=== PATIENT | male | born 1960 | race Caucasian/White ===

== ENCOUNTER → 2020-01-08 | Outpatient (REF) | payer MEDICARE ==
[2020-01-08 18:07] LABS: BASO # 0.1 10^3/uL (0.0-0.2); BASO % 0.4 % (0.0-1.0); EOS # 0.2 10^3/uL (0.0-0.5); EOS % 1.5 % (0.0-3.0); HEMATOCRIT 46.4 % (42.0-52.0); HEMOGLOBIN 15.8 g/dl (13.5-17.5); INR 1.1; LYMPH # 3.1 10^3/uL (1.5-5.0); LYMPH % 20.3 % (24.0-44.0); MEAN CORPUSCULAR HEMOGLOBIN 31.3 pg (27.0-33.0); MEAN CORPUSCULAR HGB CONC 34.1 g/dl (32.0-36.5); MEAN CORPUSCULAR VOLUME 91.9 fl (80.0-96.0); MONO % 6.6 % (0.0-5.0); NEUTROPHILS # 10.6 10^3/uL (1.5-8.5); NEUTROPHILS % 70.7 % (36.0-66.0); PLATELET COUNT, AUTOMATED 310 10^3/uL (150-450); PROTHROMBIN TIME 13.9 SECONDS (11.8-14.0); RED BLOOD COUNT 5.05 10^6/uL (4.30-6.10); WHITE BLOOD COUNT 15.1 10^3/uL (4.0-10.0)
[2020-01-08 18:08] LABS: PARTIAL THROMBOPLASTIN TIME 29.2 SECONDS (25.0-38.4)
[2020-01-08 18:09] LABS: BLOOD UREA NITROGEN 17 MG/DL (7-18); CALCIUM LEVEL 9.4 MG/DL (8.5-10.1); CARBON DIOXIDE LEVEL 21 MEQ/L (21-32); CHLORIDE LEVEL 107 MEQ/L (98-107); CREATININE FOR GFR 0.74 MG/DL (0.70-1.30); GLOMERULAR FILTRATION RATE > 60.0 (>56); GLUCOSE, FASTING 98 MG/DL (70-100); POTASSIUM SERUM 4.2 MEQ/L (3.5-5.1); SODIUM LEVEL 137 MEQ/L (136-145)
== END ==
LOC: M LAB REF 17:04
PROVIDERS: ATTEND Internal Medicine Pulmonary Disease
DX: Z01.812 Encounter for preprocedural laboratory examination (principal); J44.9 Chronic obstructive pulmonary disease, unspecified

== ENCOUNTER → 2020-01-19 | Outpatient (CLI) | payer MEDICARE ==
[~2020-01-19] MED LIST: ABIL10TA9 PO; IBUP80TA PO; PROAAER10 INH; SYMB16INH INH; TREL1AER INH
== END ==
LOC: M LABSMTC 10:22
PROVIDERS: ATTEND Anesthesiology
DX: Z11.59 Encounter for screening for other viral diseases (principal)

== ENCOUNTER 2020-01-21 07:22 | Day surgery (SDC) | payer MEDICARE ==
[~2020-01-21] VITALS: Ht 193 cm; Wt 112.7 kg
[~2020-01-21 07:22] MED LIST changes: +CETACAINE SPRAY 5GM As Ordered ONE; +EPINEPHrine 1MG/10ML SYRINGE 1.5IN As Ordered ONE; +LIDOCAINE 1% MDV 20ML VIAL As Ordered ONE; +LIDOCAINE 1% MDV 20ML VIAL SQ PRN; +LIDOCAINE 2% 100MG/5ML SDV (FOR ANES.) As Ordered ONE; +LIDOCAINE VISCOUS 2% SOLN 15ML UDC As Ordered ONE; +MIDAZOLAM INJ 2MG/2ML VIAL (J2250 PER 1MG) As Ordered ONE; +ONDANSETRON 4MG/2ML VIAL As Ordered ONE; +PHENYLephrine HCL 500 MCG/5 ML (100MCG/ML) SYRINGE (J2370) As Ordered ONE; +ROCURONIUM BROMIDE 50 MG/5 ML VIAL As Ordered ONE; +SUGAMMADEX SODIUM 500 MG/5 ML VIAL (BRIDION) As Ordered ONE; +THROMBIN SOLN 5,000 UNITS VIAL As Ordered ONE; +dexameTHASONE 4 MG/ML 1ML VIAL (J1100 PER 1MG) As Ordered ONE; +ePHEDrine SULFATE 25 MG/5 ML(5MG/ML) SYRINGE As Ordered ONE; +fentaNYL 100 MCG/2 ML INJECTION (J3010) As Ordered ONE; +propofoL 200 MG/20 ML VIAL As Ordered ONE
[2020-01-21] MEDS ORDERED: LR 1,000 ML IV ONE (08:30)
[2020-01-21] MEDS ORDERED: dexameTHASONE 4 MG/ML 1ML VIAL (J1100 PER 1MG) As Ordered ONE (09:44)
[2020-01-21] MEDS ORDERED: LIDOCAINE 2% 100MG/5ML SDV (FOR ANES.) As Ordered ONE (09:54)
[2020-01-21] MEDS ORDERED: METOCLOPRAMIDE INJ 10MG/2ML VIAL (J2765 PER 1) IV PRN (10:15)
[2020-01-21] MEDS ORDERED: ONDANSETRON 4MG/2ML VIAL IV PRN (10:15)
[2020-01-21] MEDS ORDERED: LR 1,000 ML IV SCH (10:15)
[2020-01-21] MEDS ORDERED: fentaNYL 100 MCG/2 ML INJECTION (J3010) IV PRN (10:15)
[2020-01-21 10:35] VITALS: BP 139/73
--- NOTE | 2020-01-21 12:11 | REP ---
CHEST, PORTABLE: Two AP portable views of the chest are performed. There is no pneumothorax. There is consolidative opacity in the medial right lung base. Heart does not appear to be significantly enlarged. Left lung is clear. Electronically Signed by Terence Hammonds MD 01/22/2020 10:01 A
--- NOTE | 2020-01-21 12:31 | ROOR ---
Patient Name: Jaylon Mesa Procedure Date: 01/21/2020 7:15 AM Date of : 1960 Admit Type: Outpatient Age: 59 Room: Room 1 Note Status: Finalized Attending MD: Nithya Vera MD Procedure: Bronchoscopy Indications: Right hilar mass, Hilar lymphadenopathy of the right side, Mediastinal adenopathy, Paratracheal adenopathy Providers: Nithya Vera MD (Doctor) Referring MD: 1. No Referring Physician 1. No Referring Physician, Admin. (Referring MD) Requesting Physician: Medicines: General Anesthesia, Cetacaine topical Complications: No immediate complications. Estimated blood loss: Minimal Procedure: Pre-Anesthesia Assessment: - Prior to the procedure, a History and Physical was performed, and patient medications and allergies were reviewed. The patient's tolerance of previous anesthesia was also reviewed. The risks and benefits of the procedure and the sedation options and risks were discussed with the patient. All questions were answered, and informed consent was obtained. Prior Anticoagulants: The patient has taken no previous anticoagulant or antiplatelet agents. ASA Grade Assessment: III - A patient with severe systemic disease. After reviewing the risks and benefits, the patient was deemed in satisfactory condition to undergo the procedure. The Bronchoscope was introduced through the mouth, via the endotracheal tube (the patient was intubated for the procedure) and advanced to the tracheobronchial tree of both lungs. The patient tolerated the procedure well. Findings: The trachea is of normal caliber. The micheal is sharp. The tracheobronchial tree was examined to at least the first subsegmental level on the left side. On the right side, unable to easily advance bronchoscope into the right middle lobe or right lower lobe segmental bronchi. On the left side bronchial mucosa was normal; in left upper lobe there was anatomic variant of three segmental bronchi. There are no endobronchial lesions on the left bronchial tree. On the right side in the right bronchus intermedius inferiorly there was a friable mucosal endobronchial lesion. There was also narrowing and obstruction of the right middle lobe and right lower lobe oriface with more polypoid endobronchial lesion and mucosal thickening. Brushings of a lesion were obtained in the right bronchus intermedius with a cytology brush and sent for routine cytology. An endobronchial ultrasound endoscope was utilized in order to assist with fine needle aspiration in the subcarinal area and in the left hilum. Transbronchial needle aspirations of lymph nodes were performed in the subcarinal area and in the left hilum using an Olympus EBUS-TBNA 21 gauge needle and sent for histopathology examination. The procedure was guided by ultrasound. Impression: - Right hilar mass - Hilar lymphadenopathy of the right side - Mediastinal adenopathy - Paratracheal adenopathy - Brushings were obtained. - Endobronchial ultrasound was performed. Recommendation: - Follow up with bronchoscopist as previously scheduled. Attending Participation: I personally performed the entire procedure. Nithya Vera MD 01/21/2020 12:31:45 PM Number of Addenda: 0 Note Initiated On: 01/21/2020 7:15 AM
== END 2020-01-21 13:00 | disposition home or self-care (01) ==
LOC: M SDC 07:22
PROVIDERS: ATTEND Internal Medicine Pulmonary Disease
DX: C34.31 Malignant neoplasm of lower lobe, right bronchus or lung (principal); C77.1 Secondary and unspecified malignant neoplasm of intrathoracic lymph nodes; R59.0 Localized enlarged lymph nodes; J44.9 Chronic obstructive pulmonary disease, unspecified; F17.218 Nicotine dependence, cigarettes, with other nicotine-induced disorders; Z86.718 Personal history of other venous thrombosis and embolism; Z79.51 Long term (current) use of inhaled steroids; Z79.899 Other long term (current) drug therapy; F20.9 Schizophrenia, unspecified; F32.9 Major depressive disorder, single episode, unspecified
CPT/HCPCS: 31623; 31652; 71045; 88104; 88173; 88305; 88313; 88341; 88342; J1100; J2250; J2370; J2405; J3010